=== PATIENT | female | born 1945 | race Caucasian/White ===

== ENCOUNTER 2017-08-26 17:12 | Inpatient (IN) | payer OTHER ==
[~2017-08-26] VITALS: Ht 162.6 cm; Wt 90.4 kg
[~2017-08-26 17:12] MED LIST: ADVAIR 250/501 DISK IH; ADVAIR HFA120 INHAL1 IH; ALDACTONE25 MG PO; ASPIRIN EC325 MG PO; ASPIRIN81 M2 PO; ATORVASTATIN CA40 MG PO; CARDIZEM CD,CA180 MG PO; CARDIZEM CD120 MG PO; CARVEDILOL3.125 MG PO; CARVEDILOL6.25 MG PO; CHANTIX1 MG PO; CYCLOBENZAPRINE10 MG PO; DIGOXIN125 MCG PO; DILAUDID2 MG PO; DOCUSATE SODIU100 MG PO; ECOTRIN325 MG PO; ELIQUIS5 MG PO; FLOVENT 22120 INHALA IH; FUROSEMIDE20 MG PO; FUROSEMIDE40 MG PO; IRON 100 PLUS1 EACH PO; LASIX20 MG PO; LISINOPRIL5 MG PO; LOPRESSOR100 M1 PO; METOPROLOL TART50 MG PO; OXYCODONE HCL5 MG PO; PROAIR HFA8.5 GM IH; SPIRIVA RESPIMAT4 GM IH; SPIRIVA1 INHALATI IH; SPIRONOLACTONE25 MG PO; TAMIFLU75 MG PO; XARELTO20 MG PO
[2017-08-26 18:43] LABS: HEMATOCRIT 39.3 % (36.0-46.0); HEMOGLOBIN 12.9 G/DL (11.9-15.5); MCH 31.5 PG (29.0-34.0); MCHC 32.8 G/DL (30.0-36.0); MCV 96.1 FL (83-99); PLATELET COUNT 292 K/uL (156-360); RBC DIS.WIDTH-CV 13.7 % (11.8-14.6); RBC DIS.WIDTH-SD 48.5 % (39-53); RED BLOOD COUNT 4.09 M/uL (3.80-5.20); WHITE BLOOD COUNT 20.4 K/uL (4.1-10.2)
[2017-08-26 18:51] LABS: CHLORIDE 107 mEq/L (99-109); POTASSIUM 5.6 mEq/L (3.7-5.4); SODIUM 137 mEq/L (136-147)
[2017-08-26 18:52] LABS: GLUCOSE 220 mg/dL (70-99)
[2017-08-26 18:56] LABS: GFR ESTIMATE (CALCULATED) 8 mL/min/
[2017-08-26 19:02] LABS: CREATININE 5.6 mg/dL (0.6-1.3); UREA NITROGEN (BUN) 69 mg/dL (9-23)
[2017-08-26 22:28] LABS: ALBUMIN 4.5 g/dL (3.2-4.8)
[2017-08-26 22:31] LABS: TOTAL PROTEIN 8.1 g/dL (6.4-8.3)
[2017-08-26 22:33] LABS: TOTAL BILIRUBIN 0.7 mg/dL (0.0-1.0)
[2017-08-26 22:34] LABS: ALKALINE PHOSPHATASE 110 IU/L (3-129)
[2017-08-26 22:36] LABS: AST (GOT) 12 IU/L (2-34)
[2017-08-26 22:37] LABS: ALT (GPT) 16 IU/L (3-49); DIRECT BILIRUBIN 0.3 mg/dL (0.0-0.3)
[2017-08-26 22:38] LABS: LIPASE 53 U/L (1.0-51.0)
[2017-08-27] LABS: APPEARANCE SL.HAZY ((CLEAR)); BILIRUBIN NEGATIVE; BLOOD SMALL; COLOR YELLOW ((YELLOW)); GLUCOSE (STRIP) 50; KETONES NEGATIVE; LEUKOCYTES LARGE; NITRITE NEGATIVE; PROTEIN (STRIP) 30; SPECIFIC GRAVITY 1.015 (1.000-1.030); UROBILINOGEN 0.2 MG/DL (0.2-1.0)
[2017-08-27 00:17] LABS: EPITHELIAL CELLS 1+ /HPF; MUCUS RARE /LPF; RED BLOOD CELLS 15-20 /HPF (0-5); WHITE BLOOD CELLS 30-40 /HPF (0-5)
[2017-08-27 00:18] LABS: BACTERIA 1+ /HPF; UCUL ADDED? YES
[2017-08-27] MEDS ORDERED: CLOPIDOGREL75 MG PO (00:56)
[2017-08-27] MEDS ORDERED: ELIQUIS2.5 MG PO (00:57)
[2017-08-27] MEDS ORDERED: METFORMIN HCL1000 MG PO (00:58)
[2017-08-27 01:00] LABS: CHLORIDE 110 mEq/L (99-109); POTASSIUM 5.2 mEq/L (3.7-5.4); SODIUM 136 mEq/L (136-147)
[2017-08-27] MEDS ORDERED: LISINOPRIL10 MG PO (01:00)
[2017-08-27 01:01] LABS: MAGNESIUM 1.6 mg/dL (1.3-2.7)
[2017-08-27 01:02] LABS: GLUCOSE 143 mg/dL (70-99)
[2017-08-27 01:06] LABS: CREATININE 5.1 mg/dL (0.6-1.3); GFR ESTIMATE (CALCULATED) 9 mL/min/
[2017-08-27 01:07] LABS: UREA NITROGEN (BUN) 68 mg/dL (9-23)
[2017-08-27 01:08] LABS: CREATINE KINASE 53 IU/L (1-294)
[2017-08-27] MEDS ORDERED: CARTIA XT120 MG PO (01:10)
[2017-08-27] MEDS ORDERED: SPIRIVA RESPIMAT4 G1 IH (01:18)
[2017-08-27 01:57] VITALS: BP 124/59
[2017-08-27 04:06] LABS: UR CREATININE CONCENTRATION 109.4 MG/DL; UR CREATININE CONCENTRATION 110.4 MG/DL
[2017-08-27 07:45] VITALS: BP 108/54
[2017-08-27 10:06] LABS: BASOPHIL (%) 0.2 % (0-1); EOSINOPHIL (%) 0 % (0-5); HEMATOCRIT 35.3 % (36.0-46.0); HEMOGLOBIN 11.3 G/DL (11.9-15.5); IMMATURE GRANULOCYTE (%) 0.7 % (0.0-0.7); LYMPHOCYTE (%) 8.9 % (15-42); LYMPHOCYTE COUNT 1.4 K/uL (1.0-2.8); MCH 31.4 PG (29.0-34.0); MCV 98.1 FL (83-99); MONOCYTE (%) 1.7 % (3-12); MONOCYTE COUNT 0.3 K/uL (0-0.8); NEUTROPHIL (%) 88.5 % (45-76); NEUTROPHIL COUNT 14.2 K/uL (1.8-6.4); PLATELET COUNT 273 K/uL (156-360); RBC DIS.WIDTH-CV 13.9 % (11.8-14.6); RBC DIS.WIDTH-SD 50.3 % (39-53); WHITE BLOOD COUNT 16.1 K/uL (4.1-10.2)
[2017-08-27 11:11] VITALS: BP 111/58
[2017-08-27 13:05] LABS: CHLORIDE 103 MEQ/L (99-109); POTASSIUM 5.3 MEQ/L (3.7-5.4); SODIUM 135 MEQ/L (136-147)
[2017-08-27 13:10] LABS: CREATININE 4.7 MG/DL (0.6-1.3); GFR ESTIMATE (CALCULATED) 10 mL/min/; UREA NITROGEN (BUN) 63 mg/dL (9-23)
[2017-08-27 13:12] LABS: GLUCOSE 259 mg/dL (70-99)
[2017-08-27 14:36] LABS: INTER. NORMALIZED RATIO 1.4
[2017-08-27 14:39] LABS: PTT 29.4 SEC (25-37)
[2017-08-27 16:00] VITALS: BP 123/60
[2017-08-27 20:38] VITALS: BP 132/60
[2017-08-28 00:25] VITALS: BP 132/60
[2017-08-28 02:40] LABS: HEMATOCRIT 33.6 % (36.0-46.0); HEMOGLOBIN 11.2 G/DL (11.9-15.5); MCH 31.9 PG (29.0-34.0); MCHC 33.3 G/DL (30.0-36.0); MCV 95.7 FL (83-99); PLATELET COUNT 274 K/uL (156-360); RBC DIS.WIDTH-CV 13.8 % (11.8-14.6); RBC DIS.WIDTH-SD 48.3 % (39-53); RED BLOOD COUNT 3.51 M/uL (3.80-5.20); WHITE BLOOD COUNT 22.7 K/uL (4.1-10.2)
[2017-08-28 03:24] LABS: CHLORIDE 108 mEq/L (99-109); SODIUM 139 mEq/L (136-147)
[2017-08-28 03:26] LABS: GLUCOSE 209 mg/dL (70-99)
[2017-08-28 03:29] LABS: CREATININE 4.4 mg/dL (0.6-1.3); GFR ESTIMATE (CALCULATED) 10 mL/min/; PHOSPHORUS 3.8 mg/dL (2.5-4.9)
[2017-08-28 03:31] LABS: UREA NITROGEN (BUN) 62 mg/dL (9-23)
[2017-08-28 03:34] LABS: POTASSIUM 4.1 mEq/L (3.7-5.4)
[2017-08-28 08:20] VITALS: BP 143/66
[2017-08-28 11:25] VITALS: BP 124/57
[2017-08-28 16:10] VITALS: BP 175/74
[2017-08-28 16:30] VITALS: BP 134/62
[2017-08-28 23:58] VITALS: BP 134/56
[2017-08-29 06:56] VITALS: BP 139/74
[2017-08-29 07:01] LABS: BASOPHIL (%) 0.1 % (0-1); EOSINOPHIL (%) 0 % (0-5); HEMATOCRIT 33.9 % (36.0-46.0); IMMATURE GRANULOCYTE (%) 1.1 % (0.0-0.7); LYMPHOCYTE COUNT 1.9 K/uL (1.0-2.8); MCH 31.3 PG (29.0-34.0); MCHC 32.4 G/DL (30.0-36.0); MCV 96.6 FL (83-99); MONOCYTE (%) 9.2 % (3-12); NEUTROPHIL (%) 80.6 % (45-76); NEUTROPHIL COUNT 17.2 K/uL (1.8-6.4); NRBC (%) 0.1 /100 WBC (0-0); PLATELET COUNT 303 K/uL (156-360); RBC DIS.WIDTH-CV 14.1 % (11.8-14.6); RBC DIS.WIDTH-SD 49.9 % (39-53); RED BLOOD COUNT 3.51 M/uL (3.80-5.20); WHITE BLOOD COUNT 21.4 K/uL (4.1-10.2)
[2017-08-29 07:25] LABS: ALBUMIN 3.7 G/DL (3.2-4.8); CHLORIDE 107 MEQ/L (99-109); GFR ESTIMATE (CALCULATED) 16 mL/min/; GLUCOSE 170 mg/dL (70-99); PHOSPHORUS 3.8 mg/dL (2.5-4.9); POTASSIUM 4.4 MEQ/L (3.7-5.4); SODIUM 139 MEQ/L (136-147); UREA NITROGEN (BUN) 55 mg/dL (9-23)
[2017-08-29 11:00] VITALS: BP 138/70
[2017-08-29 15:22] VITALS: BP 139/63
[2017-08-30] VITALS (8 sets, daily range): BP systolic 124–148; BP diastolic 60–68
[2017-08-30 06:08] LABS: BASOPHIL (%) 0.2 % (0-1); EOSINOPHIL (%) 0 % (0-5); HEMATOCRIT 34.7 % (36.0-46.0); IMMATURE GRANULOCYTE (%) 1.4 % (0.0-0.7); LYMPHOCYTE (%) 16.6 % (15-42); LYMPHOCYTE COUNT 3.4 K/uL (1.0-2.8); MCH 30.5 PG (29.0-34.0); MCHC 31.7 G/DL (30.0-36.0); MCV 96.1 FL (83-99); MONOCYTE (%) 9.2 % (3-12); MONOCYTE COUNT 1.9 K/uL (0-0.8); NEUTROPHIL (%) 72.6 % (45-76); NEUTROPHIL COUNT 14.6 K/uL (1.8-6.4); NRBC (%) 0.4 /100 WBC (0-0); PLATELET COUNT 311 K/uL (156-360); RBC DIS.WIDTH-SD 49.1 % (39-53); RED BLOOD COUNT 3.61 M/uL (3.80-5.20); WHITE BLOOD COUNT 20.2 K/uL (4.1-10.2)
[2017-08-30 06:55] LABS: ALBUMIN 3.6 G/DL (3.2-4.8); CHLORIDE 109 MEQ/L (99-109); CHLORIDE 111 MEQ/L (99-109); GFR ESTIMATE (CALCULATED) 23 mL/min/; GLUCOSE 122 mg/dL (70-99); GLUCOSE 124 mg/dL (70-99); PHOSPHORUS 2.9 mg/dL (2.5-4.9); POTASSIUM 3.6 MEQ/L (3.7-5.4); SODIUM 143 MEQ/L (136-147); UREA NITROGEN (BUN) 44 mg/dL (9-23); UREA NITROGEN (BUN) 45 mg/dL (9-23)
[2017-08-30 06:58] LABS: CREATININE 2.2 MG/DL (0.6-1.3)
[2017-08-30 08:39] LABS: MAGNESIUM 1.4 mg/dl (1.3-2.7)
[2017-08-31 03:23] VITALS: BP 103/59
[2017-08-31 06:38] LABS: BASOPHIL (%) 0.5 % (0-1); BASOPHIL COUNT 0.1 K/uL (0-0.1); EOSINOPHIL (%) 0.3 % (0-5); EOSINOPHIL COUNT 0.1 K/uL (0-0.3); HEMATOCRIT 35.7 % (36.0-46.0); HEMOGLOBIN 11.4 G/DL (11.9-15.5); IMMATURE GRANULOCYTE (%) 2.3 % (0.0-0.7); LYMPHOCYTE (%) 23.6 % (15-42); LYMPHOCYTE COUNT 4.7 K/uL (1.0-2.8); MCH 30.6 PG (29.0-34.0); MCHC 31.9 G/DL (30.0-36.0); MCV 95.7 FL (83-99); MONOCYTE (%) 8.5 % (3-12); MONOCYTE COUNT 1.7 K/uL (0-0.8); NEUTROPHIL (%) 64.8 % (45-76); NEUTROPHIL COUNT 12.9 K/uL (1.8-6.4); NRBC (%) 2.1 /100 WBC (0-0); PLATELET COUNT 308 K/uL (156-360); RBC DIS.WIDTH-SD 49.2 % (39-53); RED BLOOD COUNT 3.73 M/uL (3.80-5.20); WHITE BLOOD COUNT 19.8 K/uL (4.1-10.2)
[2017-08-31 07:13] LABS: CHLORIDE 108 MEQ/L (99-109); CREATININE 1.8 MG/DL (0.6-1.3); GFR ESTIMATE (CALCULATED) 29 mL/min/; GLUCOSE 109 mg/dL (70-99); MAGNESIUM 1.5 mg/dl (1.3-2.7); POTASSIUM 4.1 MEQ/L (3.7-5.4); SODIUM 143 MEQ/L (136-147); UREA NITROGEN (BUN) 37 mg/dL (9-23)
[2017-08-31 07:36] VITALS: BP 128/85
[2017-08-31 12:03] VITALS: BP 131/63
[2017-08-31] MEDS ORDERED: PREDNISONE10 MG PO (13:58)
[2017-08-31] MEDS ORDERED: LOPRESSOR25 MG PO (13:58)
[2017-08-31] MEDS ORDERED: LISINOPRIL5 MG PO (13:58)
[2017-08-31] MEDS ORDERED: JANUVIA25 MG PO (13:58)
== END 2017-08-31 16:55 | disposition home health service (06) | DRG 291 ==
LOC: EXP 17:12 → EME 17:12 → EDOF 08-27 00:09 → 5EAST 08-27 00:09 → ENRESERV 08-27 00:11 → 5EAST 08-27 01:29 → ENPENDDIS 08-31 → 5EAST 08-31 16:55
PROVIDERS: Internal Medicine; Internal Medicine Nephrology; Physician Assistant
DX: I11.0 Hypertensive heart disease with heart failure (principal); J96.01 Acute respiratory failure with hypoxia; J44.1 Chronic obstructive pulmonary disease with (acute) exacerbation; N17.0 Acute kidney failure with tubular necrosis; I50.23 Acute on chronic systolic (congestive) heart failure; E87.2 Acidosis; E87.5 Hyperkalemia; E86.0 Dehydration; E87.6 Hypokalemia; I25.5 Ischemic cardiomyopathy; I27.20 Pulmonary hypertension, unspecified; I08.3 Combined rheumatic disorders of mitral, aortic and tricuspid valves; I48.92 Unspecified atrial flutter; E11.51 Type 2 diabetes mellitus with diabetic peripheral angiopathy without gangrene; I48.2 Chronic atrial fibrillation; N39.0 Urinary tract infection, site not specified; R59.0 Localized enlarged lymph nodes; E78.2 Mixed hyperlipidemia; I25.10 Atherosclerotic heart disease of native coronary artery without angina pectoris; G89.29 Other chronic pain; E66.9 Obesity, unspecified; Z68.35 Body mass index [BMI] 35.0-35.9, adult; Z91.19 Patient's noncompliance with other medical treatment and regimen; Z59.9 Problem related to housing and economic circumstances, unspecified; Z87.891 Personal history of nicotine dependence; Z90.81 Acquired absence of spleen; Z87.01 Personal history of pneumonia (recurrent); Z85.43 Personal history of malignant neoplasm of ovary; Z79.01 Long term (current) use of anticoagulants; Z79.02 Long term (current) use of antithrombotics/antiplatelets
CPT/HCPCS: 71046; 71250; 74176; 76705; 76775; 80048; 80048 91; 80069; 80076; 81003; 82436; 82550; 82570; 82948; 83605; 83690; 83735; 83880; 83935; 84156; 84300; 85025; 85027; 85610; 85730; 87040; 87086; 87502; 89190; 93005; 93306; 94640; 94640 76; 94760; 94799; 99202; 99281; 99285; J0456; J0696; J1644; J1815; J2930; J3475; J7030; J7120; J7512

== ENCOUNTER 2018-03-15 15:05 | Inpatient (IN) | payer OTHER ==
[~2018-03-15] VITALS: Ht 162.6 cm; Wt 90.4 kg
[~2018-03-15 15:05] MED LIST changes: +CARTIA XT120 MG PO; +CLOPIDOGREL75 MG PO; +ELIQUIS2.5 MG PO; +JANUVIA25 MG PO; +LISINOPRIL10 MG PO; +LOPRESSOR25 MG PO; +METFORMIN HCL1000 MG PO; +PREDNISONE10 MG PO; +SPIRIVA RESPIMAT4 G1 IH
[2018-03-15 15:40] LABS: BASOPHIL (%) 0.6 % (0-1); BASOPHIL COUNT 0.1 K/uL (0-0.1); EOSINOPHIL (%) 1.3 % (0-5); EOSINOPHIL COUNT 0.2 K/uL (0-0.3); HEMOGLOBIN 9.7 G/DL (11.9-15.5); IMMATURE GRANULOCYTE (%) 0.4 % (0.0-0.7); LYMPHOCYTE (%) 35.9 % (15-42); LYMPHOCYTE COUNT 5.2 K/uL (1.0-2.8); MCH 27.6 PG (29.0-34.0); MCHC 31.3 G/DL (30.0-36.0); MCV 88.3 FL (83-99); MONOCYTE (%) 10.1 % (3-12); MONOCYTE COUNT 1.5 K/uL (0-0.8); NEUTROPHIL (%) 51.7 % (45-76); NEUTROPHIL COUNT 7.5 K/uL (1.8-6.4); PLATELET COUNT 358 K/uL (156-360); RBC DIS.WIDTH-CV 15.8 % (11.8-14.6); RBC DIS.WIDTH-SD 50.3 % (39-53); RED BLOOD COUNT 3.51 M/uL (3.80-5.20); WHITE BLOOD COUNT 14.5 K/uL (4.1-10.2)
[2018-03-15 15:56] LABS: CHLORIDE 108 mEq/L (99-109); POTASSIUM 5.6 mEq/L (3.7-5.4); SODIUM 138 mEq/L (136-147)
[2018-03-15 15:58] LABS: GLUCOSE 108 mg/dL (70-99); TOTAL PROTEIN 6.8 g/dL (6.4-8.3)
[2018-03-15 16:00] LABS: TOTAL BILIRUBIN 0.6 mg/dL (0.0-1.0)
[2018-03-15 16:02] LABS: ALKALINE PHOSPHATASE 100 IU/L (3-129); CREATININE 2.2 mg/dL (0.6-1.3); GFR ESTIMATE (CALCULATED) 23 mL/min/
[2018-03-15 16:03] LABS: UREA NITROGEN (BUN) 39 mg/dL (9-23)
[2018-03-15 16:04] LABS: AST (GOT) 27 IU/L (2-34)
[2018-03-15 16:05] LABS: ALT (GPT) 15 IU/L (3-49)
[2018-03-15 16:08] LABS: TROP-I INTERPRETATION POSITIVE
[2018-03-15 16:17] LABS: TROPONIN-I 0.67 ng/mL (0.0-0.30)
[2018-03-15] MEDS ORDERED: METOPROLOL SUCC25 MG PO (17:33)
[2018-03-15] MEDS ORDERED: LASIX40 MG PO (17:35)
[2018-03-15] MEDS ORDERED: ADVAIR HFA120 INHAL1 IH (17:37)
[2018-03-15] MEDS ORDERED: ENTRESTO 49 MG1 EACH PO (17:38)
[2018-03-15] MEDS ORDERED: ARTHRITIS PAIN650 M5 PO (17:40)
[2018-03-15 23:49] LABS: CHLORIDE 110 mEq/L (99-109); POTASSIUM 4.8 mEq/L (3.7-5.4); SODIUM 141 mEq/L (136-147)
[2018-03-15 23:50] LABS: GLUCOSE 90 mg/dL (70-99)
[2018-03-15 23:54] LABS: CREATININE 2.2 mg/dL (0.6-1.3); GFR ESTIMATE (CALCULATED) 23 mL/min/
[2018-03-15 23:55] LABS: UREA NITROGEN (BUN) 41 mg/dL (9-23)
[2018-03-16] VITALS (7 sets, daily range): BP systolic 94–153; BP diastolic 34–67
[2018-03-16] LABS: TROP-I INTERPRETATION INDETERMINATE; TROPONIN-I 0.47 ng/mL (0.0-0.30)
[2018-03-16 04:58] LABS: APPEARANCE CLEAR ((CLEAR)); BILIRUBIN NEGATIVE; BLOOD NEGATIVE; COLOR YELLOW ((YELLOW)); GLUCOSE (STRIP) NEGATIVE; KETONES NEGATIVE; LEUKOCYTES NEGATIVE; NITRITE NEGATIVE; PROTEIN (STRIP) NEGATIVE; SPECIFIC GRAVITY 1.013 (1.000-1.030); UROBILINOGEN 0.2 MG/DL (0.2-1.0)
[2018-03-16 05:42] LABS: HEMOGLOBIN 8.9 G/DL (11.9-15.5); MCH 27.5 PG (29.0-34.0); MCHC 30.7 G/DL (30.0-36.0); MCV 89.5 FL (83-99); PLATELET COUNT 330 K/uL (156-360); RBC DIS.WIDTH-CV 15.9 % (11.8-14.6); RBC DIS.WIDTH-SD 51.8 % (39-53); RED BLOOD COUNT 3.24 M/uL (3.80-5.20); WHITE BLOOD COUNT 11.7 K/uL (4.1-10.2)
[2018-03-16 06:03] LABS: TROP-I INTERPRETATION INDETERMINATE; TROPONIN-I 0.36 ng/mL (0.0-0.30)
[2018-03-16 07:19] LABS: CHLORIDE 109 MEQ/L (99-109); GFR ESTIMATE (CALCULATED) 26 mL/min/; POTASSIUM 4.3 MEQ/L (3.7-5.4); SODIUM 140 MEQ/L (136-147); UREA NITROGEN (BUN) 41 mg/dL (9-23)
[2018-03-16 07:21] LABS: GLUCOSE 120 mg/dL (70-99)
[2018-03-16 07:36] LABS: THYROTROPIN (TSH) 2.2 MIU/L (0.4-5.5)
[2018-03-17 01:16] VITALS: BP 116/52
[2018-03-17 05:21] VITALS: BP 114/49
[2018-03-17 06:03] LABS: ALBUMIN 3.9 G/DL (3.2-4.8); CHLORIDE 108 MEQ/L (99-109); GFR ESTIMATE (CALCULATED) 43 mL/min/; GLUCOSE 119 mg/dL (70-99); PHOSPHORUS 3.9 mg/dL (2.5-4.9); POTASSIUM 4.7 MEQ/L (3.7-5.4); SODIUM 139 MEQ/L (136-147); UREA NITROGEN (BUN) 35 mg/dL (9-23); URIC ACID 7.3 mg/dL (3.1-9.2)
[2018-03-17 06:06] LABS: CREATININE 1.3 MG/DL (0.6-1.3)
[2018-03-17 07:09] VITALS: BP 115/58
[2018-03-17 09:49] LABS: HEMATOCRIT 32.5 % (36.0-46.0); MCH 27.2 PG (29.0-34.0); MCHC 30.8 G/DL (30.0-36.0); MCV 88.6 FL (83-99); NRBC (%) 0.2 /100 WBC (0-0); PLATELET COUNT 363 K/uL (156-360); RBC DIS.WIDTH-CV 15.6 % (11.8-14.6); RBC DIS.WIDTH-SD 50.3 % (39-53); RED BLOOD COUNT 3.67 M/uL (3.80-5.20); WHITE BLOOD COUNT 12.2 K/uL (4.1-10.2)
[2018-03-17 11:36] VITALS: BP 109/60
[2018-03-17 15:24] VITALS: BP 121/60
[2018-03-17] MEDS ORDERED: METOPROLOL SUCC25 MG PO (16:47)
== END 2018-03-17 18:12 | disposition home or self-care (01) | DRG 683 ==
LOC: EME 15:05 → EDOF 22:59 → 4EAST 22:59 → ENRESERV 23:03 → 4EAST 03-16 00:56
PROVIDERS: Emergency Medicine; Hospitalist; Internal Medicine Nephrology
DX: N17.9 Acute kidney failure, unspecified (principal); I50.22 Chronic systolic (congestive) heart failure; E87.2 Acidosis; I13.0 Hypertensive heart and chronic kidney disease with heart failure and stage 1 through stage 4 chronic kidney disease, or unspecified chronic kidney disease; J90 Pleural effusion, not elsewhere classified; E11.22 Type 2 diabetes mellitus with diabetic chronic kidney disease; N18.9 Chronic kidney disease, unspecified; J44.9 Chronic obstructive pulmonary disease, unspecified; I25.5 Ischemic cardiomyopathy; I34.1 Nonrheumatic mitral (valve) prolapse; I35.0 Nonrheumatic aortic (valve) stenosis; I48.0 Paroxysmal atrial fibrillation; E11.51 Type 2 diabetes mellitus with diabetic peripheral angiopathy without gangrene; D63.1 Anemia in chronic kidney disease; E78.5 Hyperlipidemia, unspecified; E87.5 Hyperkalemia; G89.29 Other chronic pain; I25.10 Atherosclerotic heart disease of native coronary artery without angina pectoris; K80.20 Calculus of gallbladder without cholecystitis without obstruction; E66.9 Obesity, unspecified; R74.8 Abnormal levels of other serum enzymes; I25.2 Old myocardial infarction; Z79.01 Long term (current) use of anticoagulants; Z79.02 Long term (current) use of antithrombotics/antiplatelets; Z90.710 Acquired absence of both cervix and uterus; Z90.81 Acquired absence of spleen; Z93.3 Colostomy status; Z95.2 Presence of prosthetic heart valve; Z68.36 Body mass index [BMI] 36.0-36.9, adult; Z87.891 Personal history of nicotine dependence; Z79.82 Long term (current) use of aspirin; Z79.51 Long term (current) use of inhaled steroids; Z79.84 Long term (current) use of oral hypoglycemic drugs; Z80.52 Family history of malignant neoplasm of bladder; Z82.49 Family history of ischemic heart disease and other diseases of the circulatory system; Z82.5 Family history of asthma and other chronic lower respiratory diseases
CPT/HCPCS: 71045; 71250; 80047; 80048; 80048 91; 80053; 80069; 81003; 82436; 82948; 83880; 84133; 84300; 84443; 84484; 84550; 85025; 85027; 93005; 93306; 94640; 94760; 94799; 99281; 99285; J1815; J1940; J7040

== ENCOUNTER 2018-03-22 07:22 | Day surgery (SDC) | payer OTHER ==
[~2018-03-22] VITALS: Ht 163.8 cm; Wt 92.0 kg
[~2018-03-22 07:22] MED LIST changes: +ARTHRITIS PAIN650 M5 PO; +ENTRESTO 49 MG1 EACH PO; +LASIX40 MG PO; +METOPROLOL SUCC25 MG PO
== END 2018-03-22 18:39 | disposition home or self-care (01) ==
LOC: CATH 07:22
PROVIDERS: Internal Medicine Interventional Cardiology
DX: I25.10 Atherosclerotic heart disease of native coronary artery without angina pectoris (principal); I27.20 Pulmonary hypertension, unspecified; I42.0 Dilated cardiomyopathy; I35.0 Nonrheumatic aortic (valve) stenosis; D64.9 Anemia, unspecified; I11.0 Hypertensive heart disease with heart failure; I50.22 Chronic systolic (congestive) heart failure; I48.2 Chronic atrial fibrillation; I73.9 Peripheral vascular disease, unspecified; E78.2 Mixed hyperlipidemia; I34.0 Nonrheumatic mitral (valve) insufficiency; Z87.891 Personal history of nicotine dependence; Z79.02 Long term (current) use of antithrombotics/antiplatelets; Z79.01 Long term (current) use of anticoagulants; Z79.82 Long term (current) use of aspirin
CPT/HCPCS: 82948; C1769; C1788; C1894; J1644; J2250; J3010; J7040